=== PATIENT | male | born 1965 | race Caucasian/White ===

== ENCOUNTER 2016-12-20 08:43 | Emergency (ER) | payer OTHER ==
[2016-12-20 08:58] VITALS: RESP 16
--- NOTE | 2016-12-20 09:28 | EDPHY ---
H & P Time Seen by Provider: 12/20/16 09:27 HPI/ROS: Chief complaint. Joint pain HPI. 51-year-old male with joint pain beginning in August. It began with bilateral hip pain. He saw his PCP in [place] x-rays were normal. He has saw orthopedist 1 week ago who also reviewed his x-rays and felt a were normal. Now he has discomfort in shoulder blades both biceps right 3rd knuckle of his hand. Symptoms are better with ibuprofen. He has had no fever. No joint pain or swelling. He had a remote injury 7 years ago to his left hip with residual hematoma that was drained any felt that got hard a couple days ago but now is back to normal. He is otherwise healthy man and has had no rheumatoid type problems in the past. Patient is concerned about RA. Patient has been trying to make an appointment with rheumatology but they can' t see him until mid December ROS Constitutional. no fever/chills, no weakness Eyes. no problems with vision ENT. no sore throat, no nasal drainage Cardiovascular. no chest pain Respiratory. no shortness of breath, no cough Abdominal. no abdominal pain, no nausea/vomiting, no diarrhea . no problems urinating MS. Multiple joint pains without swelling Skin. no rash Lymph. no swollen glands Neuro. no headache, no dizziness, no difficulty walking or with speech Past Medical/Surgical History: Hypertension Social History: Single, nonsmoker, no alcohol Smoking Status: Never smoked Physical Exam: General Appearance: Alert well-developed male no distress vital signs stable Eyes: Pupils equal and round no pallor or injection. ENT, Mouth: Mucous membranes are moist. Respiratory: There are no retractions, lungs are clear to auscultation. Cardiovascular: Regular rate and rhythm. Gastrointestinal: Abdomen is soft and nontender, no masses, bowel sounds normal. Neurological: Awake and alert, sensory and motor exams grossly normal. Skin: Warm and dry, no rashes. Musculoskeletal: Neck is supple nontender. Extremities symmetrical, full range of motion. No obvious swelling erythema or deformity to any of the involved joints Psychiatric: Patient is oriented X 3, there is no agitation. Constitutional: Initial Vital Signs Temperature (C) 36.7 C 12/20/16 08:50 Heart Rate 84 12/20/16 08:50 Respiratory Rate 16 12/20/16 08:50 Blood Pressure 140/91 H 12/20/16 08:50 O2 Sat (%) 98 12/20/16 08:50 O2 Delivery Mode Room Air Allergies/Adverse Reactions: No Known Allergies Allergy (Unverified 12/20/16 08:58) Home Medications: Medication Instructions Recorded Losartan Potassium [Cozaar 25 mg 25 mg PO 12/20/16 (*)] predniSONE 40 mg PO DAILY #8 tablet 12/20/16 Medical Decision Making ED Course/Re-evaluation: Re-evaluation 11:25 a.m.. Patient and I discussed laboratory evaluation, treatment plan including criteria for return importance of follow-up and further evaluation. Patient does have an appointment already with [facility] and he is encouraged to keep that appointment. He expresses understanding and agreement. We agreed to try short course of prednisone to help with inflammation and stiffness Differential Diagnosis: I considered rheumatoid arthritis another mixed connective tissue diseases. I considered infection, electrolyte abnormalities. I considered tendinitis and recent antibiotic use the patient has not been now on any fluoroquinolones recently - Data Points Laboratory Results: Laboratory Results 12/20/16 10:04 12/20/16 10:04 12/20/16 12/20/16 10:04 10:04 WBC 7.31 10^3/uL 10^3/uL (3.80-9.50) RBC 4.60 10^6/uL 10^6/uL (4.40-6.38) Hgb 15.2 g/dL g/dL (13.7-17.5) Hct 44.7 % % (40.0-51.0) MCV 97.2 fL fL (81.5-99.8) MCH 33.0 pg pg (27.9-34.1) MCHC 34.0 g/dL g/dL (32.4-36.7) RDW 12.1 % % (11.5-15.2) Plt Count 358 10^3/uL 10^3/uL (150-400) MPV 9.4 fL fL (8.7-11.7) Neut % (Auto) 62.8 % % (39.3-74.2) Lymph % (Auto) 18.3 % % (15.0-45.0) [place] % (Auto) 9.2 % % (4.5-13.0) Eos % (Auto) 7.8 % H % (0.6-7.6) Baso % (Auto) 1.1 % % (0.3-1.7) Nucleat RBC Rel Count 0.0 % % (0.0-0.2) Absolute Neuts (auto) 4.59 10^3/uL 10^3/uL (1.70-6.50) Absolute Lymphs (auto) 1.34 10^3/uL 10^3/uL (1.00-3.00) Absolute Monos (auto) 0.67 10^3/uL 10^3/uL (0.30-0.80) Absolute Eos (auto) 0.57 10^3/uL H 10^3/uL (0.03-0.40) Absolute Basos (auto) 0.08 10^3/uL 10^3/uL (0.02-0.10) Absolute Nucleated RBC 0.00 10^3/uL 10^3/uL (0-0.01) Immature Gran % 0.8 % % (0.0-1.1) Immature Gran # 0.06 10^3/uL 10^3/uL (0.00-0.10) ESR 9 MM/HR MM/HR (0-20) Sodium 144 mEq/L mEq/L (134-144) Potassium 4.6 mEq/L mEq/L (3.5-5.2) Chloride 105 mEq/L mEq/L (97-110) Carbon Dioxide 22 mEq/l mEq/l (22-31) Anion Gap 17 mEq/L H mEq/L (8-16) BUN 16 mg/dL mg/dL (7-23) Creatinine 0.9 mg/dL mg/dL (0.7-1.3) Estimated GFR > 60 Glucose 104 mg/dL H mg/dL (70-100) Calcium 10.6 mg/dL H mg/dL (8.5-10.4) C-Reactive Protein 6.8 mg/L mg/L (<10.0) Rheum Factor Semi-Quant < 8.6 IU/mL IU/mL (<12.0) Departure - Departure Disposition: Home, Routine, Self-Care Clinical Impression: Joint pain Qualifiers: Joint pain location: unspecified Qualified Code(s): M25.50 - Pain in unspecified joint Condition: Good Instructions: Arthralgia (ED) Additional Instructions: Prednisone daily for the next 4 days. Do not take anti-inflammatories while taking the prednisone though may begin again after your finished with the prednisone. Return for worsening symptoms. Keep your appointment with Rheumatology Referrals: ANKUR SQUIRES [Primary Care Provider] - 5-7 days, call for appt. Prescriptions: predniSONE 40 mg PO DAILY #8 tablet
[2016-12-20 10:12] LABS: % IMMATURE GRANULYOCYTES 0.8 % (0.0-1.1); ABSOLUTE IMMATURE GRANULOCYTES 0.06 10^3/uL (0.00-0.10); ADD DIFF? NO; ADD MORPH? NO; ADD SCAN? NO; ATYPICAL LYMPHOCYTE FLAG 0 (0-99); FRAGMENT RBC FLAG 0 (0-99); HEMATOCRIT 44.7 % (40.0-51.0); HEMOGLOBIN 15.2 g/dL (13.7-17.5); LEFT SHIFT FLG 0 (0-99); LIPEMIA HEMOLYSIS FLAG 90 (0-99); MEAN CELL VOLUME 97.2 fL (81.5-99.8); MEAN PLATELET VOLUME 9.4 fL (8.7-11.7); PLATELET CLUMPS FLAG 0 (0-99); PLATELET COUNT 358 10^3/uL (150-400); RED CELL DISTRIBUTION WIDTH 12.1 % (11.5-15.2)
[2016-12-20 10:28] LABS: ANION GAP 17 mEq/L (8-16); C-REACTIVE PROTEIN 6.8 mg/L (<10.0); CALCIUM 10.6 mg/dL (8.5-10.4); CARBON DIOXIDE 22 mEq/l (22-31); CHLORIDE 105 mEq/L (97-110); CREATININE 0.9 mg/dL (0.7-1.3); GLOMERULAR FILTRATION RATE > 60; GLUCOSE 104 mg/dL (70-100); POTASSIUM 4.6 mEq/L (3.5-5.2); SODIUM 144 mEq/L (134-144)
[2016-12-20 10:41] LABS: SEDIMENTATION RATE 9 MM/HR (0-20)
[2016-12-20 11:44] VITALS: BP 144/107; PULSE 65; TEMP 97.9; O2SAT 96
== END 2016-12-20 11:44 | disposition home or self-care (01) ==
DX: M25.50 Pain in unspecified joint (principal); I10 Essential (primary) hypertension